=== PATIENT | female | born 1970 | race Caucasian/White ===

== ENCOUNTER 2018-11-19 08:31 | Emergency (ER) | payer SELFPAY ==
[~2018-11-19] VITALS: Ht 154.9 cm; Wt 107.0 kg
[2018-11-19 08:32] VITALS: Ht 154.9 cm; Wt 107.0 kg
[2018-11-19 10:51] VITALS: BP 133/90; PULSE 74; RESP 16
--- NOTE | 2018-11-19 12:52 | ERD ---
ER Documentation Chief Complaint Chief Complaint HTN x this am 142/89 HPI 48-year-old female presenting with hypertension. Patient states she went to work earlier today and felt high blood pressure. Her she is currently taking medication but did not take it today for her high blood pressure. She states that she did not know she needed it. Patient works as a nurse assist. Patient denies any chest pain or dizziness. Denies vomiting. Denies visual changes. Medical history is enlarged tonsils. Surgical history denies. NKDA. Social history denies ROS All systems reviewed and are negative except as per history of present illness. PMhx/Soc Hx Alcohol Use: No Hx Substance Use: No Hx Tobacco Use: No Smoking Status: Never smoker FmHx Family History: No diabetes, No coronary disease, No other Physical Exam Vitals Vital Signs Date Temp Pulse Resp B/P (MAP) Pulse Ox O2 O2 Flow FiO2 Time Delivery Rate 11/19/18 74 16 133/90 99 Room Air 10:51 (104) 11/19/18 98.7 64 18 142/89 96 08:32 (106) Physical Exam GENERAL: The patient is well-appearing, well-nourished, in no acute distress HEENT: Atraumatic. Conjunctivae are pink. Pupils equal, round, and reactive to light. There is no scleral icterus. Tympanic membranes clear bilaterally. Oropharynx clear. NECK: C-spine is soft and supple. There is no meningismus. There is no cervical lymphadenopathy. CHEST: Clear to auscultation bilaterally. There are no rales, wheezes or rhonchi. HEART: Regular rate and rhythm. No murmurs, clicks, rubs or gallops. Results 24 hrs Laboratory Tests Test 11/19/18 09:31 11/19/18 09:45 11/19/18 09:47 Bedside Glucose 95 mg/dL Bedside Urine pH (LAB) 6.0 Bedside Urine Protein (LAB) Negative Bedside Urine Glucose (UA) Negative Bedside Urine Ketones (LAB) Negative Bedside Urine Blood 1+ Bedside Urine Nitrite (LAB) Negative Bedside Urine Leukocyte Esterase (L Negative POC Beta HCG, Qualitative NEGATIVE Procedures/MDM EKG: Rate/Rhythm: 63 bpm Normal Sinus Rhythm QRS, ST, T-waves: No changes consistent w/ acute ischemia Impression: No evidence of ischemia or arrhythmia MDM: 48-year-old female presenting with high blood pressure. Patient's blood pressure is stable in the ER and she is not showing signs of endorgan failure. I have low suspicion for hypertension urgency or emergency at this time. She did not take her hypertensive medications which may be because of her elevated blood pressure today. Patient is recommended to continue taking her hypertensive medications as previously prescribed. Patient is told symptoms change or worsen to return immediately to the ER. All questions answered discharge Departure Diagnosis: Primary Impression: Hypertension Condition: Stable Patient Instructions: High Blood Pressure (Hypertension) Referrals: [facility] YOU HAVE RECEIVED A MEDICAL SCREENING EXAM AND THE RESULTS INDICATE THAT YOU DO NOT HAVE A CONDITION THAT REQUIRES URGENT TREATMENT IN THE EMERGENCY DEPARTMENT. FURTHER EVALUATION AND TREATMENT OF YOUR CONDITION CAN WAIT UNTIL YOU ARE SEEN IN YOUR DOCTORS OFFICE WITHIN THE NEXT 1-2 DAYS. IT IS YOUR RESPONSIBILITY TO MAKE AN APPOINTMENT FOR FOLOW-UP CARE. IF YOU HAVE A PRIMARY DOCTOR --you should call your primary doctor and schedule an appointment IF YOU DO NOT HAVE A PRIMARY DOCTOR YOU CAN CALL OUR PHYSICIAN REFERRAL HOTLINE AT IF YOU CAN NOT AFFORD TO SEE A PHYSICIAN YOU CAN CHOSE FROM THE FOLLOWING [facility] [id number] [facility] [address] [facility] [facility] [address] [facility] [address] [facility] [address] [facility] [facility]. [address] Additional Instructions: FOLLOW UP WITH YOUR PRIMARY CARE PHYSICIAN TOMORROW.Return to this facility if you are not improving as expected. NAWAF GAVIRIA PA-C Nov 19, 2018 12:52
== END 2018-11-19 10:52 | disposition home or self-care (01) ==
LOC: FTE 08:31
DX: I10 Essential (primary) hypertension (principal)
CPT/HCPCS: 81003; 81025; 82962; 93005